=== PATIENT | female | born 1955 | race Caucasian/White ===

== ENCOUNTER 2021-01-21 10:25 | Outpatient (CLI) | payer MEDICARE, SELFPAY ==
--- NOTE | ~2021-01-21 | XR_ITS ---
XR foot RT min 3V DATE: 01/21/2021 10:55 INDICATION: Third metatarsal area pain, burning sensation TECHNIQUE: 4 views COMPARISON: None FINDINGS: Plantar and posterior calcaneal enthesopathy. No fracture, dislocation, periosteal reaction or bone destruction. Moderate narrowing at the first metacarpophalangeal joint likely due to osteoarthritis. No significant abnormality is identified in the third metatarsal area. IMPRESSION: Plantar and posterior calcaneal enthesopathy Mild osteoarthritis first metatarsophalangeal joint Reviewed, dictated and finalized at location A.
== END 2021-01-21 10:26 | disposition home or self-care (01) ==
LOC: CHSLAB 10:29
PROVIDERS: PCP Physician Assistant; Visit Provider Nurse Practitioner
DX: M79.671 Pain in right foot (principal); M77.51 Other enthesopathy of right foot and ankle
CPT/HCPCS: 73630